=== PATIENT | female | born 1970 | race Caucasian/White ===

== ENCOUNTER 2016-11-29 17:59 | Emergency (ER) | payer MEDICAID ==
[2016-11-29] MEDS ORDERED: IBUPROFEN 600 MG TABLET PO ONE (19:16)
[2016-11-29] MEDS ORDERED: ACETAMINOPHEN 325 MG TABLET PO ONE (19:17)
[2016-11-29] MEDS ORDERED: LIDOCAINE VISCOUS 2% 15 ML UDC ONE (19:18)
[2016-11-29 20:09] LABS: MONOSCREEN NEGATIVE
--- NOTE | 2016-11-29 21:40 | ER PHYSICIAN DOCUMENTATION ---
Physician Documentation [facility] Name:Delmis Garcia Age:46 yrs Sex:Female :1970 Arrival Date:11/29/2016 Time:17:59 Bed5 Private MD: Ankit Buenrostro Disposition: 11/29/16 20:18 Discharged to Home/Self Care. Impression: Upper Respiratory Infection (URI). - Condition is Good. - Discharge Instructions: URI, Viral, No Abx (Adult). - Medical Reconciliation form form. - Follow up: Private Physician; When: 1 - 2 days; Reason: Recheck today's complaints, Continuance of care. - Problem is an ongoing problem. - Symptoms have improved. - Notes: DRINK PLENTY OF FLUIDS. OK TO TAKE IBUPROFEN OR TYLENOL FOR ACHES AND PAINS. RETURN HERE FOR ANY WORSENING. MAKE SURE TO FOLLOW UP WITH YOUR DOCTOR WITHIN THE NEXT WEEK. HPI: 11/29 07:30 This 46 yrs old Female presents to ER via Private Vehicle with complaints of tl1 Sore Throat. 07:30 The patient presents with sore throat. 4 DAYS AGO SHE relapsed using meth, after tl1 staying clean for about 12 years , but stopped using 2 days ago. At about the same time she noted a sore throat with a cough, malaise , myalgias, and perhaps some low grede subjective fever. No rhinorrhea. No dyspnea, abdominal pain, vomiting, diarrhea,UTI symptoms or rash. She does think she is a little dehydrated, and feels thirsty.. Historical: - Allergies: No known drug Allergies; - Home Meds: 1. antidepressant - PMHx: meth addiction; DEPRESSION; - PSHx: APPENDECTOMY; - Tetanus: unknown. - Ebola Screening: : Patient negative for fever greater than or equal to 101.5 degrees Fahrenheit, and additional compatible Ebola Virus Disease symptoms. Patient denies exposure to infectious person. Patient denies travel to an Ebola-affected area in the 21 days before illness onset. No symptoms or risks identified at this time. . - Immunization history: Unable to Obtain. - Social history: Smoking status: Patient uses tobacco products, current some day smoker. Patient uses street drugs, Patient/guardian denies using alcohol. ROS: 20:31 ENT: Positive for sore throat, Negative for injury or acute deformity, drainage from tl1 ear(s), hearing loss, nasal discharge, rhinorrhea, sinus congestion, sinus pain. 20:31 Neck: Negative for swollen nodes. 20:31 All other systems are negative. Exam: 20:32 Constitutional: This is a well developed, well nourished patient who is awake, alert, tl1 and in no acute distress. Head/Face: Normocephalic, atraumatic. 20:32 Eyes: Pupils equal round and reactive to light, extra-ocular motions intact. Lids and tl1 lashes normal. Conjunctiva and sclera are non-icteric and not injected. Cornea within normal limits. Periorbital areas with no swelling, redness, or edema. Chest/axilla: Normal chest wall appearance and motion. Nontender with no deformity. No lesions are appreciated. 20:32 Cardiovascular: Regular rate and rhythm with a normal S1 and S2. No gallops, murmurs, or rubs. Normal PMI, no JVD. No pulse deficits. 20:32 ENT: External ear(s): no acute changes, Mouth: is normal, Posterior pharynx: slight injection. No tonsillar enlargement, erythema, swelling or exudate.. 20:32 Neck: External neck: is normal, ROM/movement: is normal, Lymph nodes: no appreciated lymphadenopathy. 20:32 Respiratory: the patient does not display signs of respiratory distress, Respirations: normal, Breath sounds: are normal. 20:32 Abdomen/GI: Inspection: abdomen appears normal, Palpation: abdomen is soft and non-tender. 20:32 Back: CVA tenderness, is absent. 20:32 Musculoskeletal/extremity: Exam is negative for acute changes. 20:32 Skin: no rash present. 20:32 Neuro: Exam negative for acute changes. Vital Signs: 18:56 BP 127 / 79; Pulse 80; Resp 20; Temp 99.6; Pulse Ox 95% on R/A; Pain 7/10; rs 20:25 BP 132 / 76; Pulse 79; Resp 16; Temp 98.4; Pulse Ox 98.4% ; Pain 1/10; mk4 MDM: 18:32 Patient medically screened. cd 20:36 Differential diagnosis: bronchitis, marcel-puente virus, group A strep tonsillitis, tl1 influenza, Mycoplasma Pharyngitis tonsillitis, uvulitis. Data reviewed: vital signs, nurses notes, lab test result(s), and as a result, I will discharge patient. Counseling: I had a detailed discussion with the patient and/or guardian regarding: the historical points, exam findings, and any diagnostic results supporting the discharge/admit diagnosis, lab results, the need for outpatient follow up. Medication response: The patient's symptoms have improved. Response to treatment: the patient's symptoms have mildly improved after treatment, and as a result, I will discharge patient. ED course: One liter NS. She was able to drink OK and some soda. No nausea or vomiting. Arjay significantly better and is planning on following up with her PCP and inside tester in [place] when she returns.. 11/29 18:47 Order name: RAPID STREP SCRN CUL IF NEG; Complete Time: 18:55 EDMS 11/29 18:54 Interpretation: Normal: RAPID STREP SCRN CUL IF NEG NEGATIVE. 11/29 19:55 Order name: INFLUENZA A/B; Complete Time: 06:24 EDMS 11/30 06:24 Interpretation: Normal. 11/29 20:10 Order name: MONOSCREEN; Complete Time: 06:24 EDMS 11/30 06:24 Interpretation: Normal. 11/29 20:10 Order name: HCG, SERUM; Complete Time: 06:24 EDMS 11/30 06:24 Interpretation: Normal. cd Dispensed Medications: 19:10 Drug: Tylenol 975 mg; Route: PO; mk4 21:22 Follow up: Response: No adverse reaction; Pain is decreased mk4 19:10 Drug: Ibuprofen 600 mg; Route: PO; mk4 21:36 Follow up: Response: No adverse reaction; Pain is decreased mk4 19:10 Drug: Viscous Lidocaine Liquid (4 %) 5 ml; Route: Mucous Membrane; mk4 21:21 Follow up: Response: No adverse reaction; Pain is decreased mk4 19:42 Drug: NS 0.9% 1000 ml; Volume: 1000 ml; Route: IV; Rate: bolus; Infused Over: 45 mins; mk4 Site: right antecubital; Delivery: Dawn Tubing; 21:21 Follow up: IV Status: Completed infusion; Infusion discontinued; IV Intake: 1000ml mk4 Signatures: Dexter Andre RN RN tg Stalker, Rachael, RN RN rs Daley, Chris, MD MD cd King, Melody mk4 Ankit Manriquez MD MD tl1
--- NOTE | 2016-11-29 21:40 | ER NURSING DOCUMENTATION ---
Nurse's Notes [facility] Name:Delmis Garcia Age:46 yrs Sex:Female :1970 Arrival Date:11/29/2016 Time:17:59 Bed5 Private MD: Diagnosis:Upper Respiratory Infection (URI) Presentation: 11/29 18:06 Acuity: KENNY 4 tg 18:08 Presenting complaint: Patient states: Has been using meth for two days. She is rs addicted, and had quit using. In an outpatient program in [place]. She was smoking meth, and now she is having withdrawal sx, and a sore throat . C/O dehydration, weakness. Transition of care: patient was not received from another setting of care. 18:08 Method Of Arrival: Private Vehicle rs 18:10 Notified ED Physician of patient's arrival and CC Dr. Casillas notified. rs Triage Assessment: 18:29 General: Appears in no apparent distress, well developed, well nourished, well groomed, rs Behavior is cooperative, pleasant. Pain: Complains of pain in throat. EENT: Tympanic membrane clear on right ear and left ear Ear canal clear on right ear and left ear Throat is reddened No tonsils. Large amt of mucus, and appears to have a posterior bulge. . Denies nasal congestion, nasal discharge, difficulty swallowing. Neuro: No deficits noted. Level of Consciousness is awake, alert, Oriented to person, place, time, event. Cardiovascular: No deficits noted. Capillary refill < 3 seconds Pulses are 3+ in right radial artery. Respiratory: No deficits noted. Airway is patent Respiratory effort is even, unlabored, Respiratory pattern is regular, symmetrical, Breath sounds are clear bilaterally. GI: No deficits noted. Abdomen is flat, non- distended Bowel sounds present X 4 quads. Abd is soft and non tender. Derm: Skin is pink, warm & dry. Historical: - Allergies: No known drug Allergies; - Home Meds: 1. antidepressant - PMHx: meth addiction; DEPRESSION; - PSHx: APPENDECTOMY; - Tetanus: unknown. - Ebola Screening: : Patient negative for fever greater than or equal to 101.5 degrees Fahrenheit, and additional compatible Ebola Virus Disease symptoms. Patient denies exposure to infectious person. Patient denies travel to an Ebola-affected area in the 21 days before illness onset. No symptoms or risks identified at this time. . - Immunization history: Unable to Obtain. - Social history: Smoking status: Patient uses tobacco products, current some day smoker. Patient uses street drugs, Patient/guardian denies using alcohol. Screenin:58 Infectious Disease Risk None. Abuse screen: Denies threats or abuse. Nutritional rs screening: No deficits noted. Assessment: 19:10 See Triage Assessment done by same RN. mk4 Vital Signs: 18:56 BP 127 / 79; Pulse 80; Resp 20; Temp 99.6; Pulse Ox 95% on R/A; Pain 7/10; rs 20:25 BP 132 / 76; Pulse 79; Resp 16; Temp 98.4; Pulse Ox 98.4% ; Pain 1/10; mk4 ED Course: 18:01 Patient arrived in ED. jt 18:06 Triage completed. tg 18:07 Rosana Walsh, RN is Primary Nurse. rs 18:10 Notified ED Physician of patient's arrival and chief complaint. Dr. Casillas notified. Arm rs band placed on Bed in low position Call Light in Reach HOB Elevated Side rails up x1. 18:32 Beni Casillas MD is Attending Physician. cd 19:10 Valuables Remains with patient. mk4 19:50 Attending Physician role handed off by Beni Casillas MD tl1 19:50 Ankit Manriquez MD is Attending Physician. tl1 19:51 Ankit Manriquez MD is Attending Physician. tl1 19:51 Ankit Manriquez MD is Attending Physician. tl1 Administered Medications: 19:10 Drug: Tylenol 975 mg; Route: PO; mk4 21:22 Follow up: Response: No adverse reaction; Pain is decreased mk4 19:10 Drug: Ibuprofen 600 mg; Route: PO; mk4 21:36 Follow up: Response: No adverse reaction; Pain is decreased mk4 19:10 Drug: Viscous Lidocaine Liquid (4 %) 5 ml; Route: Mucous Membrane; mk4 21:21 Follow up: Response: No adverse reaction; Pain is decreased mk4 19:42 Drug: NS 0.9% 1000 ml; Volume: 1000 ml; Route: IV; Rate: bolus; Infused Over: 45 mins; mk4 Site: right antecubital; Delivery: Malo Tubing; 21:21 Follow up: IV Status: Completed infusion; Infusion discontinued; IV Intake: 1000ml [facility] Intake: 21:21 IV: 1000ml; Total: 1000ml. [facility] Outcome: 20:18 Discharge ordered by MD. [email or web address] 20:25 Discharged to home [facility] 20:25 Condition: good 20:25 Discharge Assessment: Patient awake, alert and oriented x 3. No cognitive and/or functional deficits noted. Patient verbalized understanding of disposition instructions. 20:25 Discharge instructions given to patient, Instructed on discharge instructions, follow up and referral plans. Demonstrated understanding of instructions. 21:39 Patient left the ED. [facility] 11/30 11:24 Discharge F/U Call: Unable to reach: no answer [place] Signatures: Dexter Andre RN RN tg Stalker, Rachael, RN RN rs Abuso, Melanie, RN RN ma Daley, Chris, MD MD cd King, Melody [facility] Ankit Manriquez MD MD 1 Azucena Kay
== END 2016-11-29 21:40 | disposition home or self-care (01) ==
LOC: ER 17:59
DX: J06.9 Acute upper respiratory infection, unspecified (principal); E86.0 Dehydration; F15.20 Other stimulant dependence, uncomplicated; Z79.899 Other long term (current) drug therapy
CPT/HCPCS: 84703; 86308; 86403; 87081; 87449; 96360; 96361; 99283